=== PATIENT | female | born 1995 | race Caucasian/White ===

== ENCOUNTER 2022-02-08 19:07 | Observation (INO) | payer BC, MEDICAID, SELFPAY ==
[2022-02-08] VITALS (10 sets, daily range): BP systolic 120–163; BP diastolic 82–94; PULSE 87–110; RESP 15–18; TEMP 36.3–37.4; O2SAT 91–97; BMI 41.6; BMI 41.1
--- NOTE | 2022-02-08 19:37 | W.ED.GENADLT ---
HPI - General Adult General: Chief complaint: General Medical Stated complaint: Bleeding after tonsilectomy Time Seen by Provider: 02/08/22 19:33 History of Present Illness: 26-year-old presents due to tonsillar bleeding. She had a tonsillectomy on Monday by ENT. States that since then she has had continued bleeding. Was seen by ENT on Monday and given steroids. States she has been gargling salt water at home. Denies any blood thinner use. Denies any shortness of breath or pain. Review of Systems Narrative: - CONSTITUTIONAL: Denies weight loss, fever and chills. - HEENT: As above - RESPIRATORY: Denies SOB and cough. - CV: Denies palpitations and CP. - GI: Denies abdominal pain, nausea, vomiting and diarrhea. - : Denies dysuria and urinary frequency. - MSK: Denies myalgia and joint pain. - SKIN: Denies rash and pruritus. - NEUROLOGICAL: Denies headache, weakness, numbness and syncope. - PSYCHIATRIC: Denies suicidal ideation Physical Exam Narrative: EXAM NARRATIVE: - GENERAL: Alert and oriented x 3. No acute distress. Well-nourished. - EYES: EOMI. Anicteric. - HENT: Bleeding from right tonsillar pillar. Tolerating secretions. Atraumatic, no C-spine tenderness. Moist mucous membranes. No scleral icterus. No cervical lymphadenopathy. - LUNGS: Clear to auscultation bilaterally. No accessory muscle use. Equal lung sounds bilaterally. No respiratory distress. - CARDIOVASCULAR: Regular rate and rhythm. No murmur. No JVD. - ABDOMEN: Soft, non-tender and non-distended. Negative CVA tenderness bilaterally, no rebound or guarding, negative Chu sign. No palpable masses. - EXTREMITIES: No edema. Non-tender. - SKIN: No rashes or lesions. Warm. - NEUROLOGIC: No meningismus or focal neurological deficits. CN II-XII grossly intact. - PSYCHIATRIC: Cooperative. Appropriate mood and affect. Course Vital Signs: Vital signs: Vital Signs Temperature 98.2 F 02/08/22 19:23 Pulse Rate 99 02/08/22 19:23 Respiratory Rate 18 02/08/22 19:23 Blood Pressure 130/85 02/08/22 19:23 Pulse Oximetry 97 02/08/22 19:[address] [facility] - General Adult Medical Decision Making 26-year-old presents with post tonsillectomy hemorrhage. She is hemodynamically stable but does have active bleeding. Improved with nebulized TXA. Discussed with ENT, Dr. Mulligan and he will take her to the OR. Patient admitted in stable condition. Lab Data : 02/08/22 19:50 02/08/22 19:50 Laboratory Results WBC 21.1 10^3/uL (4.0-10.0) H 02/08/22 19:50 RBC 5.02 10^6/uL (4.1-5.3) 02/08/22 19:50 Hgb 13.2 g/dL (11.5-15.3) 02/08/22 19:50 Hct 41.2 % (37.0-47.0) 02/08/22 19:50 MCV 82.1 fl (81-99) 02/08/22 19:50 MCH 26.3 pg (28.0-34.0) L 02/08/22 19:50 MCHC 32.0 g/dL (30.0-36.0) 02/08/22 19:50 RDW 13.9 % (12.1-15.1) 02/08/22 19:50 Plt Count 590 10^3/cmm (130-400) H 02/08/22 19:50 MPV 10.8 fL (7.4-10.4) H 02/08/22 19:50 Neut % (Auto) 84.5 % 02/08/22 19:50 Lymph % (Auto) 10.2 % 02/08/22 19:50 [place] % (Auto) 4.0 % 02/08/22 19:50 Eos % (Auto) 0.4 % 02/08/22 19:50 Baso % (Auto) 0.3 % 02/08/22 19:50 Neut # (Auto) 17.81 10^3/uL (1.8-7.7) H 02/08/22 19:50 Lymph # (Auto) 2.2 10^3/uL (0.8-4.8) 02/08/22 19:50 [place] # (Auto) 0.9 10^3/uL (0.2-0.9) 02/08/22 19:50 Eos # (Auto) 0.1 10^3/uL (0.0-0.8) 02/08/22 19:50 Baso # (Auto) 0.1 10^3/uL (0.0-0.1) 02/08/22 19:50 Nucleated RBC % (auto) 0 % 02/08/22 19:50 Nucleated RBCs # 0.0 /100WBC 02/08/22 19:50 PT 14.90 SECONDS (12.1-14.9) 02/08/22 19:50 INR 1.13 (0.8-1.2) 02/08/22 19:50 APTT 31.4 SECONDS (23.9-36.7) 02/08/22 19:50 Sodium 138 mmol/L (136-145) 02/08/22 19:50 Potassium 3.8 mmol/L (3.5-5.1) 02/08/22 19:50 Chloride 97 mmol/L (98-107) L 02/08/22 19:50 Carbon Dioxide 23 mmol/L (22-29) 02/08/22 19:50 Anion Gap 21.8 (5-19) H 02/08/22 19:50 BUN 16 mg/dL (6-20) 02/08/22 19:50 Creatinine 0.8 mg/dL (0.5-0.9) 02/08/22 19:50 GFR Calculation 86.0 mL/min (90-130) L 02/08/22 19:50 Glucose 112 mg/dL (65-115) 02/08/22 19:50 Calculated Osmolality 288 mOsm/kg (285-295) 02/08/22 19:50 Calcium 9.7 mg/dL (8.5-10.5) 02/08/22 19:50 Total Bilirubin 0.3 mg/dL (0.15-1.2) 02/08/22 19:50 AST 64 U/L (0-32) H 02/08/22 19:50 ALT 38 U/L (0-33) H 02/08/22 19:50 Alkaline Phosphatase 49 IU/L (35-105) 02/08/22 19:50 Total Protein 8.5 g/dL (6.6-8.7) 02/08/22 19:50 Albumin 4.2 g/dL (3.5-5.2) 02/08/22 19:50 Globulin 4.3 g/dL (1.3-4.6) 02/08/22 19:50 Discharge Plan Discharge Condition: Stable Coding Level of Care Code ED Rn Radiation for Mauricio Schafer
[2022-02-08] MEDS: tranexamic acid 1,000 mg/10mL SDV 1000 MG XX (19:46)
[2022-02-08 19:59] LABS: Basophils # 0.1 10^3/uL (0.0-0.1); Basophils % 0.3 %; Eosinophils # 0.1 10^3/uL (0.0-0.8); Eosinophils % 0.4 %; Hematocrit 41.2 % (37.0-47.0); Hemoglobin 13.2 g/dL (11.5-15.3); Lymphocytes # 2.2 10^3/uL (0.8-4.8); Lymphocytes % 10.2 %; Mean Corpuscular Hemoglobin 26.3 pg (28.0-34.0); Mean Corpuscular Volume 82.1 fl (81-99); Mean Platelet Volume 10.8 fL (7.4-10.4); Monocytes # 0.9 10^3/uL (0.2-0.9); Neutrophils # 17.81 10^3/uL (1.8-7.7); Neutrophils % 84.5 %; Nucleated Red Blood Cells % 0 %; Platelet Count 590 10^3/cmm (130-400); Red Blood Count 5.02 10^6/uL (4.1-5.3); Red Cell Distribution Width 13.9 % (12.1-15.1); White Blood Count 21.1 10^3/uL (4.0-10.0)
[2022-02-08 20:10] LABS: INR 1.13 (0.8-1.2); Partial Thromboplastin Time 31.4 SECONDS (23.9-36.7)
[2022-02-08] MEDS: lactated ringers 1,000 ML 999 ML IV (20:13)
--- NOTE | 2022-02-08 20:13 | PM.OPSURHP ---
Providers/Chief Complaint Admitting Physician: Stanton Mulligan MD Otolaryngology, Head & Neck Surgery [place] Physican[place] [facility] [place] Primary Care Provider: Ira Webster MD Chief Complaint: Bleeding after tonsilectomy New onset oral bleeding following tonsillectomy. History of Present Illness Eleanor Spangler is a 26 year old female who is POD #6 s/p bilateral tonsillectomy for recurrent tonsillitis who presents to the ER tonight with new onset oral bleeding. The patient denies any recent use of NSAIDs. Review of Systems General: Reports: 10 or more systems reviewed and unremarkable except in HPI and below Medications/Allergies Allergies Allergy/AdvReac Type Severity Reaction Status Date / Time No Known Allergies Allergy Verified 02/08/22 19:30 Additional Medication Information Hydrocone for post op pain Vital Signs Vitals Signs: Last Vital Signs Temp 98.2 F 02/08/22 19:23 Pulse 99 02/08/22 19:23 Resp 18 02/08/22 19:23 BP 130/85 02/08/22 19:23 Pulse Ox 97 02/08/22 19:23 Weight: Weight last 48 hrs Weight 120.656 kg Physical Exam Const: COMMON NORMALS: no acute distress and patient oriented x3 GENERAL APPEARANCE: cooperative and well developed HENMT: COMMON NORMALS: normocephalic and external ears normal NOSE: Normal external nose present TEETH & GINGIVA: Yes other (There is fresh blood in the bilateral tonsillar fossae; no active bleeding) Eye: COMMON NORMALS: EOMs intact bilaterally, conjunctivae normal and no scleral icterus Neck/C-Spine: COMMON NORMALS: full ROM and no lymphadenopathy Resp: COMMON NORMALS: normal respiratory effort and clear to auscultation bilaterally Cardio: COMMON NORMALS: regular rhythm and No murmurs present (Cardio) GI: COMMON NORMALS: Normal to inspection, nondistended, normoactive bowel sounds present Extremity: COMMON NORMALS: normal to inspection Neuro: COMMON NORMALS: patient oriented x3, moves all extremities and no focal motor deficits Psych: COMMON NORMALS: mental status grossly normal Data : 02/08/22 19:50 02/08/22 19:50 A&P Assessment and plan (1) Haemorrhage, tonsil, postoperative: Impression: 26 yo wf who is POD #6 s/p bilateral tonsillectomy with new onset oral bleeding Plan: - IV Hydration - General anesthesia for surgical control of post tonsillectomy bleeding: I explained procedure and risks to patient and her mother - Admission overnight for observation Status: Acute Coding Level of Care Code Acute Binitrotoluene Operator for sridevi Fwd Diagnoses Haemorrhage, tonsil, postoperative
[2022-02-08 20:16] LABS: Alanine Aminotransferase 38 U/L (0-33); Albumin Level 4.2 g/dL (3.5-5.2); Alkaline Phosphatase 49 IU/L (35-105); Anion Gap 21.8 (5-19); Aspartate Amino Transferase 64 U/L (0-32); Blood Urea Nitrogen 16 mg/dL (6-20); Calcium 9.7 mg/dL (8.5-10.5); Carbon Dioxide 23 mmol/L (22-29); Chloride 97 mmol/L (98-107); Globulin 4.3 g/dL (1.3-4.6); Glucose 112 mg/dL (65-115); Osmolality Calculated 288 mOsm/kg (285-295); Potassium 3.8 mmol/L (3.5-5.1); Sodium 138 mmol/L (136-145); Total Bilirubin 0.3 mg/dL (0.15-1.2); Total Protein 8.5 g/dL (6.6-8.7)
--- NOTE | 2022-02-08 20:32 | P.ANESASSM_ITS ---
Pre-Anesthetic Assessment Height/Weight: Height 1.7 m Weight 120.656 kg Temp Pulse Resp BP Pulse Ox 98.2 F 99 18 130/85 97 02/08/22 19:23 02/08/22 19:23 02/08/22 19:23 02/08/22 19:23 02/08/22 19:23 Preop Diagnosis: post op bleed after tonsillectomy Operation Date: 02/08/22 20:30 Proposed Procedures p Tonsillectomy Postop Bleed Control(Not Applicable) - Stanton Mulligan MD Familial anesthetic complications: none Was Beta Lisa taken within 24 hours: N/A Was Clonidine taken within 24 hours: N/A Last intake: full stomach last liquid, water 1830 02/08/22 last solid, applesauce ~1230 02/08/22 swallowing some blood Social No alcohol and No tobacco Exam alert, oriented x 3, clear to auscultation bilaterally and regular rate & rhythm Airway Submandibular: within normal limits Cervical ROM: within normal limits Mallampati: Class III Dentition: chipped (right ) History/ROS No significant complaints Pulmonary None reported Denies JOSUE CV/HEM None reported METS > 4 None reported Hepatic None reported GI None reported Metabolic Morbid Obesity and Thyroid Disease (hypothyroid ) [facility] [place] None reported Neuropsych None reported Anesthetic Plan ASA status: 2E (26 year morbidly obese female with hypothyroidism s/p tonsillectomy with bleed. ) Anesthesia: Anesthesia Evaluation and General Other: We discussed risk and benefits of general anesthesia including PONV, sore throat (sometimes severe), corneal abrasion, positioning and peripheral nerve injuries, life threatening allergic reaction, post operative ICU admission requiring p rolonged intubation, stroke, heart attack, , and rare incidences of recall. Patient consents to proceed with general anesthesia. Risk of > 500 ml blood loss (7ml/kg in children): No Medications/Allergies Allergies Allergy/AdvReac Type Severity Reaction Status Date / Time No Known Allergies Allergy Verified 02/08/22 19:30 Current Medications Generic Name Dose Route Start Last Admin Trade Name Freq PRN Reason Stop Dose Admin Lactated Ringer's 1,000 mls @ 999 mls/hr 02/08/22 20:11 02/08/22 20:13 Lactated Ringers IV 02/08/22 21:11 999 mls/hr .Q1H1M ONE Administration Additional Medication Information Hydrocone for post op pain Data Anesthesia : 02/08/22 19:50 02/08/22 19:50 Short CBC 02/08/22 Range/Units 19:50 WBC 21.1 H (4.0-10.0) 10^3/uL Hgb 13.2 (11.5-15.3) g/dL Hct 41.2 (37.0-47.0) % MCV 82.1 (81-99) fl Plt Count 590 H (130-400) 10^3/cmm Neut % (Auto) 84.5 % Neut # (Auto) 17.81 H (1.8-7.7) 10^3/uL BMP 02/08/22 19:50 Sodium 138 Potassium 3.8 Chloride 97 L Carbon Dioxide 23 BUN 16 Creatinine 0.8 Glucose 112 Calcium 9.7 Liver Function 02/08/22 Range/Units 19:50 Total Bilirubin 0.3 (0.15-1.2) mg/dL AST 64 H (0-32) U/L ALT 38 H (0-33) U/L Alkaline Phosphatase 49 (35-105) IU/L Albumin 4.2 (3.5-5.2) g/dL Coags 02/08/22 19:50 PT 14.90 INR 1.13 APTT 31.4 Cardiac Studies: No Data to Display
[2022-02-08] MEDS: famotidine 20 mg/2 mL INJ IVP (20:35)
--- NOTE | 2022-02-08 20:39 | PM.MISC ---
Miscellaneous Note Purpose of Documentation: Declined pre op HCG Note: Patient declines pre op HCG. Witness Juli Decker, Margaux MATTHEWS, and patient's mother. Patient states no chance of .
[2022-02-08] MEDS: silver nitrate applicator 3 EACH TOPICAL (20:55)
--- NOTE | 2022-02-08 21:21 | P.OP_ITS ---
Operative Report Date of procedure: February 08, 2022 Pre-op diagnosis: Preop Diagnosis post op bleed after tonsillectomy Post-op diagnosis: same Post-op findings: Blood clot, right tonsillar fossa Procedure done: Surgical control of right tonsillar fossa bleeding Implants: None Specimens removed/disposition: None Pathology: none sent Surgeon: Stanton Mulligan Hand Ornament Maker: Mechelle Rodríguez Anesthesia: General Estimated blood loss (mL): 10 IV fluids (mL): 800 Complications: None Findings: Blood clot, right tonsillar fossa Condition: stable Disposition: PACU Brief History: 26 yo wf who is POD #6 s/p bilateral tonsillectomy who presents with new onset oral bleeding. Procedure: The patient was identified in the preoperative holding area and was taken to the operating room where she was placed on the operating table in supine position. Anesthesia was obtained with general endotracheal anesthesia and the table was then turned 90 degrees the patient's left. The patient was then prepped and draped in the usual sterile fashion and a McIvor mouthgag was placed atraumatically in the patient's oral cavity. The patient was then placed in the Lorie position. At this point the clot was removed from the right tonsillar fossa - there was some active bleeding under the clot. Hemostasis was achieved with combination of cautery and a suture ligature. Once hemostasis had been achieved, the oral cavity was irrigated with a copious amount normal saline and the wounds were inspected for hemostasis which was found to be adequate. The patient's stomach contents were then evacuated with an orogastric tube. At this point the procedure was terminated and the patient was taken off suspension. The mouthgag was atraumatically released and removed. Control of the patient was then returned to anesthesia where she underwent an uneventful reversal of anesthesia and extubation. The patient was taken to the recovery room in stable condition. There were no operative or anesthetic complications
[2022-02-08] MEDS: lactated ringers 1,000 ML 100 ML IV (22:36)
[2022-02-09 04:28] VITALS: BP 132/83; PULSE 93; RESP 18; TEMP 36.6; O2SAT 94
--- NOTE | 2022-02-09 05:06 | PM.PN ---
Subjective Subjective: 26 yo wf who is POD #1 s/p bilateral tonsillectomy with post tonsillectomy bleeding. The patient is without c/o. No bleeding today. Medications: Reviewed: Yes Vitals/I&O/Wt Last Vital Signs Temp 97.9 F 02/09/22 04:28 Pulse 93 02/09/22 04:28 Resp 18 02/09/22 04:28 BP 132/83 02/09/22 04:28 Pulse Ox 94 02/09/22 04:28 02/08/22 02/08/22 02/09/22 14:59 22:59 06:59 Intake Total 0 / 0 360 / 360 Output Total 10 / Balance -10 / -10 360 / 350 Weight last 48 hrs Weight 118.955 kg Weight 120.656 kg Physical Exam Const: COMMON NORMALS: no acute distress and patient oriented x3 HENMT: COMMON NORMALS: normocephalic HEAD & SCALP: normocephalic TEETH & GINGIVA: Yes other (Normal post op exam; no bleeding or clots.) Eye: COMMON NORMALS: EOMs intact bilaterally and conjunctivae normal CONJUNCTIVA: Yes conjunctivae normal Neck/C-Spine: COMMON NORMALS: no lymphadenopathy Resp: COMMON NORMALS: normal respiratory effort and No retractions Neuro: COMMON NORMALS: patient oriented x3 Data : 02/08/22 19:50 02/08/22 19:50 A&P Assessment and plan (1) Haemorrhage, tonsil, postoperative: Impression: Post tonsillectomy bleeding - now resolved Plan: - D/C to home - Resume post op care - F/U in Dr. Mulligan's office in 1-2 weeks - Notify Dr. Mulligan for any problems - Avoid NSAIDs - Regular diet - Increase fluid intake Status: Acute Attestations Medical Necessity Statement*: The patient required overnight observation of her bleeding and IV hydration Coding Level of Care Code Acute Stapler Machine for [facility] Fwd Diagnoses Haemorrhage, tonsil, postoperative
--- NOTE | 2022-02-09 06:37 | ANE.PACU2 ---
Inpatient post-anesthesia follow up: Airway intact: Yes Vital signs: Temperature 97.9 F Pulse Rate 93 Respiratory Rate 18 Blood Pressure 132/83 Pulse Oximetry 94 Oxygen Delivery Me thod Room Air Oxygen Flow Rate Fraction of Inspir ed Oxygen Hydration adequate: Yes Nausea and vomiting: No Pain level: 1 Mental status: Baseline
[2022-02-09 08:34] VITALS: BP 122/81; PULSE 77; RESP 17; TEMP 36.7; O2SAT 96
[2022-02-09 10:23] VITALS: BP 122/81; PULSE 77; RESP 17; TEMP 36.7; O2SAT 96
== END 2022-02-09 09:30 | disposition home or self-care (01) ==
LOC: ER 19:54 → OR 20:13 → MEDSURG 21:44
PROVIDERS: Admitting Provider Specialist; Emergency Provider Emergency Medicine; PCP Internal Medicine; Visit Provider Specialist
PROC: (CPT 42960; principal; 2022-02-08 20:30)
DX: K91.840 Postprocedural hemorrhage of a digestive system organ or structure following a digestive system procedure (principal); E66.01 Morbid (severe) obesity due to excess calories; Z68.41 Body mass index [BMI] 40.0-44.9, adult
CPT/HCPCS: 42960; 12345; 80053; 85025; 85610; 85730; 86850; 86900; 99285; G0378; J0330; J1100; J2250; J2405; J2704; J3010; J3490

== ENCOUNTER 2022-09-19 12:30 | Outpatient (CLI) | payer BC, MEDICAID, SELFPAY | END 2022-09-19 12:31 | disposition home or self-care (01) | LOC: SLEEP 09-20 11:30 | PROVIDERS: PCP Internal Medicine; Visit Provider Internal Medicine | DX: G47.10 Hypersomnia, unspecified (principal); R06.83 Snoring; R53.83 Other fatigue | CPT/HCPCS: G0399 ==

== ENCOUNTER 2023-03-30 06:04 | Outpatient (CLI) | payer BC, MEDICAID, SELFPAY ==
--- NOTE | 2023-03-30 | US_ITS ---
WS: [id number] RIGHT UPPER QUADRANT ULTRASOUND HISTORY: RUQ PAIN COMPARISON: None available. Liver: 17.3 cm in length. Liver is very mildly enlarged. There is variable echogenicity throughout th e liver. No discrete mass is identified. These may be changes of hepatic steatosis with areas of spar ing. The background liver is not hepatic steatosis. No intraparotid duct dilatation. Portal Vein: Normal hepatopetal flow with monophasic waveform. Gallbladder: Normally distended gallbladder with no stones or wall thickening. CBD: 0.4 cm Pancreas: Tail of the pancreas is not visualized. The remaining pancreas is normal. Right kidney: 11.8 cm in length. Normal size and echogenicity. No hydronephrosis or mass. Aorta and IVC: Unremarkable abdominal aorta and IVC. No ascites. IMPRESSION: 1. Abnormal liver. Liver is slightly enlarged and there is diffuse heterogeneity with variable echoge nicity. No discrete mass identified. Consider hepatic steatosis with areas of sparing and hepatitis. Due to the variable echogenicity in a geographic manner consider follow-up CT or MRI enhanced imaging with liver protocol. 2. Normal gallbladder.
== END 2023-03-30 06:05 | disposition home or self-care (01) ==
PROVIDERS: PCP Internal Medicine; Visit Provider Internal Medicine
DX: R10.11 Right upper quadrant pain (principal); R16.0 Hepatomegaly, not elsewhere classified
CPT/HCPCS: 76705

== ENCOUNTER → 2023-04-24 14:57 | Outpatient (BNVA) | payer BC, MEDICAID, SELFPAY | PROVIDERS: PCP Internal Medicine; Visit Provider Nurse Practitioner Family | DX: R05.9 Cough, unspecified (principal) | CPT/HCPCS: 87426 ==

== ENCOUNTER → 2023-07-03 12:05 | Outpatient (BNVA) | payer BC, MEDICAID, SELFPAY | PROVIDERS: PCP Internal Medicine; Visit Provider Obstetrics & Gynecology | DX: N83.291 Other ovarian cyst, right side (principal); R10.2 Pelvic and perineal pain | CPT/HCPCS: 76830 ==

== ENCOUNTER 2023-07-27 10:07 | Day surgery (SDC) | payer BC, MEDICAID, SELFPAY ==
--- NOTE | 2023-07-26 23:35 | W.PM.OPSFHP ---
Same Day Surgery H&P Indication for Procedure/HPI DATE OF PROCEDURE: July 27, 2023 CHIEF COMPLAINT/INDICATIONFOR SURGICAL PROCEDURE: Right ovarian complex cyst PREOP DIAGNOSIS: Right ovarian complex cyst PLANNED PROCEDURE: Operation Date: 07/27/23 11:50 Proposed Procedures p Laparoscopy 38866, Cystectomy 01842, possible oophorectomy 07841, possible open laparotomy 54170 N83.209, R10.2(Not Applicable) - Davin Galvan MD s Mini Laparotomy(Not Applicable) - Davin Galvan MD 28 y.o. G0 Has been having constant lower abdominal pains x one year Occasionally sharp, lasting seconds, occur usually once a day pelvic sono done July 03, 2023 showed 5.5 cm complex right ovarian cyst now scheduled for laparoscopy, cystectomy, possible oophorectomy; possible open laparotomy Medications/Allergies* Home Medications Medication Instructions Recorded Confirmed Type levothyroxine 75 mcg capsule 75 mcg PO DAILY 04/24/23 07/26/23 History norgestimate-ethinyl estradiol 1 tab PO DAILY 04/24/23 07/26/23 History 0.18 mg/0.215mg/0.25mg-35 mcg(28)tablet Allergies/Adverse Reactions Allergy/AdvReac Type Severity Reaction Status Date / Time No Known Allergies Allergy Verified 07/05/23 14:15 Pertinent History/Comorbid Conditions* Family History (Updated 06/27/23 @ 14:26 by Jovanny Waldron) Diabetes Father Grandfather Grandmother Hypertension Mother Denies family history of Colon cancer Ovarian cancer Thyroid cancer Heart disease Hyperlipidemia Breast cancer Uterine cancer Stroke Pertinent Exam Findings alert, oriented x 3, clear to auscultation bilaterally and regular rate & rhythm Pertinent Data Pelvic sono 07-03-23 normal uterus and endometrial stripe Normal left ovary Right ovarian complex cyst 5.5 cm Recommendations Surgery/Procedure today Coding Level of Care Code Acute Code for Chg Fwd Time Spent (min) 20
[2023-07-27] VITALS (14 sets, daily range): BP systolic 120–151; BP diastolic 68–98; PULSE 66–98; RESP 12–20; TEMP 36.4–36.6; O2SAT 91–99; BMI 41.1
--- NOTE | 2023-07-27 10:34 | ANES.PREANE2 ---
Pre-Anesthetic Assessment Height/Weight: Height 1.7 m Weight 119.295 kg Preop Diagnosis: Right ovarian complex cyst Operation Date: 07/27/23 11:50 Proposed Procedures p Laparoscopy 04601, Cystectomy 14813, possible oophorectomy 27149, possible open laparotomy 66621 N83.209, R10.2(Not Applicable) - Davin Galvan MD s Mini Laparotomy(Not Applicable) - Davin Galvan MD Familial anesthetic complications: None Was Beta Lisa taken within 24 hours: N/A Was Clonidine taken within 24 hours: N/A Last intake: Intake Last Liquid Date 07/26/23 Last Liquid Time 20:00 Last Solid Date 07/26/23 Last Solid Time 20:00 Social No alcohol and No tobacco Exam alert, oriented x 3, clear to auscultation bilaterally and regular rate & rhythm Airway Mallampati: Class III Dentition: chipped (2) Metabolic Morbid Obesity and Thyroid Disease Anesthetic Plan ASA status: 2 Anesthesia: General Risk of > 500 ml blood loss (7ml/kg in children): No Medications/Allergies Home Medications Medication Instructions Recorded Confirmed Last Taken Type levothyroxine 75 mcg capsule 75 mcg PO DAILY 04/24/23 07/27/23 07/27/23 07:30 History norgestimate-ethinyl estradiol 1 tab PO DAILY 04/24/23 07/26/23 07/25/23 History 0.18 mg/0.215mg/0.25mg-35 mcg(28)tablet Allergies Allergy/AdvReac Type Severity Reaction Status Date / Time No Known Allergies Allergy Verified 07/05/23 14:15 [facility] [place] Anesthesia Family History (Updated 06/27/23 @ 14:27 by Jovanny Waldron) Mother Hypertension Father Diabetes Grandfather Diabetes Grandmother Diabetes Denies family history of Colon cancer Ovarian cancer Thyroid cancer Heart disease Hyperlipidemia Breast cancer Uterine cancer Stroke Female Reproductive History Date of last menstrual period: 07/09/23 Data Anesthesia Cardiac Studies: No Data to Display
[2023-07-27] MEDS: sodium chloride 0.9% 1,000 ML 30 ML IV (10:58)
--- NOTE | 2023-07-27 11:08 | W.PM.OPSUD ---
Surgery/Procedure H&P Update DATE OF PROCEDURE: July 27, 2023 DATE H&P PERFORMED: 07/26/23 H&P UPDATE INFORMATION: I have reviewed H&P completed within last 30 days, I have examined patient prior to procedure and No changes to prior documentation PREOP DIAGNOSIS: Right ovarian complex cyst PRIMARY INDICATION FOR PROCEDURE: right ovarian complex cyst PLANNED PROCEDURE: Operation Date: 07/27/23 11:50 Proposed Procedures p Laparoscopy 35218, Cystectomy 03546, possible oophorectomy 36148, possible open laparotomy 86209 N83.209, R10.2(Not Applicable) - Davin Galvan MD s Mini Laparotomy(Not Applicable) - Davin Galvan MD
[2023-07-27 12:02] LABS: OR HCG Qualitative Urine Negative (Negative)
[2023-07-27] MEDS: fentaNYL 50 mcg/mL INJ 2mL IVP (13:33)
--- NOTE | 2023-07-27 23:09 | P.OP_ITS ---
Operative Report Date of procedure: July 27, 2023 Pre-op diagnosis: Pelvic pain Right ovarian complex cyst Post-op diagnosis: Pelvic pain 5 cm right ovarian complex cyst Post-op findings: Normal uterus Normal right ovary Presence of a 5 cm right complex cyst, separate from the right ovary Normal left ovary and tube Otherwise normal pelvis Procedure done: Laparoscopy Laparoscopic right cystectomy Implants: none Specimens removed/disposition: right ovarian cyst Surgeon: Davin Galvan MD Anesthesia: General Estimated blood loss (mL): 5 Complications: none Condition: stable Disposition: PACU Brief History: 28 y.o. G0 with constant lower abdominal pains x one year pelvic sono done July 03, 2023 showed 5.5 cm complex right ovarian cyst scheduled for laparoscopy, cystectomy, possible oophorectomy; possible open laparotomy Procedure: Informed consent obtained. The patient was taken to the OR and placed supine on the table. General endotracheal anesthesia was given. The patient was then placed in dorsolithotomy position. The abdomen and perineum were prepped and draped in usual fashion. A schroeder catheter was placed. A 5 mm subumbilical skin incision was made. A laparoscopic trocar with sheath was inserted into the peritoneal cavity under direct vision with the laparoscope. Pneumoperitoneum was achieved. Two separate 5 mm incisions were made in the right and left mid- abdominal quadrants under direct visualization to accommodate additional trocars and sheaths. The pelvis was explored with the laparoscope. Normal uterus, left ovary and tube were seen. No abnormalities were seen in the utero-ovarian ligaments, broad ligaments, anterior cul-de-sac and pelvic side-cho. The left ovary was seen to be normal. Attached to the right ovary and involving the right fallopian tube was a 5 cm complex cyst. A Ligasure device was then used to excise the cyst, leaving the right ovary intact. The subumbilical skin incision was extended to 10 mm using a scalpel to accommodate a 10 mm trocar. An endpouch was used to remove the cyst from the abdominal cavity. This was sent to pathology. No bleeding was seen The liver edge was visualized and was normal. The remainder of the pelvis was again examined and seen to be normal. All instruments were then removed from the abdominal cavity after the pneumoperi toneum was allowed to escape. The subumbilical fascia was closed with a stitch of O-Vicryl The skin incisions were closed with 4-O monocryl. Dermabond was applied. The schroeder catheter was removed. There was no bleeding from the cervix. The patient was then awakened and taken to the recovery room in good condition. Postop condition stable. EBL 5 cc. There were no complications. Sponge and instrument counts were correct x two
== END 2023-07-27 14:56 | disposition home or self-care (01) ==
PROVIDERS: Anesthesiology; PCP Internal Medicine; Visit Provider Obstetrics & Gynecology
PROC: (CPT 58662; principal; 2023-07-27 11:40)
DX: N83.291 Other ovarian cyst, right side (principal); E66.01 Morbid (severe) obesity due to excess calories; Z68.41 Body mass index [BMI] 40.0-44.9, adult
CPT/HCPCS: 58662; 81025; 84703; 88305; J1100; J1885; J2405; J2704; J3010; J3490; J7030

== ENCOUNTER → 2023-09-25 16:01 | Outpatient (BNVA) | payer BC, MEDICAID, SELFPAY | PROVIDERS: PCP Internal Medicine; Visit Provider Obstetrics & Gynecology | DX: Z01.419 Encounter for gynecological examination (general) (routine) without abnormal findings (principal) | CPT/HCPCS: 87624 ==

== ENCOUNTER 2024-05-14 11:29 | Outpatient (CLI) | payer BC, MEDICAID, SELFPAY ==
--- NOTE | 2024-05-14 11:39 | XR_ITS ---
WS: [id number] Exam: XR knee RT 4V [id number] Date/Time of Exam: 05/14/2024 11:42 AM Reason For Exam: PAIN IN R KNEE No fracture or dislocation. The joint compartments are preserved. No joint effusion. XR/XR knee RT 4V [id number] IMPRESSION: 1. Normal RIGHT knee.
--- NOTE | 2024-05-14 11:39 | XR_ITS ---
WS: [id number] Exam: XR hip RT 2-3V wo/w pel* [id number] Date/Time of Exam: 05/14/2024 11:42 AM Reason For Exam: PAIN IN R HIP No fracture or dislocation. The joint compartment is maintained. Normal soft tissues. XR/XR hip RT 2-3V wo/w pel* [id number] IMPRESSION: 1. Negative RIGHT hip.
--- NOTE | 2024-05-14 11:39 | XR_ITS ---
WS: [id number] Exam: XR lumbar spine min 4V [id number] Date/Time of Exam: 05/14/2024 11:42 AM Reason For Exam: LUMBAGO No fracture or dislocation. Moderate degenerative narrowing of the L4-5 and L5-S1 discs. Posterior el ements are intact. Mild straightening. Minimal spondylosis. No significant scoliosis. XR/XR lumbar spine min 4V [id number] IMPRESSION: 1. Moderate degenerative narrowing of the L4-5 and L5-S1 discs. Mild straighten ing.
== END 2024-05-14 11:30 | disposition home or self-care (01) ==
PROVIDERS: PCP Internal Medicine; Visit Provider Internal Medicine
DX: M48.061 Spinal stenosis, lumbar region without neurogenic claudication (principal); M25.551 Pain in right hip; M25.561 Pain in right knee
CPT/HCPCS: 72110; 73502; 73564

== ENCOUNTER → 2024-10-29 13:43 | Outpatient (BNVA) | payer BC, MEDICAID, SELFPAY | PROVIDERS: PCP Internal Medicine; Visit Provider Obstetrics & Gynecology | DX: R10.2 Pelvic and perineal pain (principal) | CPT/HCPCS: 76830 ==